=== PATIENT | female | born 1970 | race Caucasian/White ===

== ENCOUNTER 2018-09-06 01:12 | Inpatient (IN) | payer MEDICARE, OTHER ==
[~2018-09-06] VITALS: Ht 165.1 cm; Wt 103.0 kg
--- NOTE | ~2018-09-06 | CON ---
[address] [address] CONSULTATION Name: AVINASH HERNÁNDEZ Room: [address] IN M.R.#: [id number] Admission: 09/06/18 Attend Phys: Anne Joshi MD Discharge: Date of : 74 Report #: [id number] THIS REPORT FOR: //name// CC: [facility] physician/PCP Anne Joshi DATE OF SERVICE: 09/10/2018 REASON FOR CONSULT: Right lower quadrant abdominal pain and symptoms of nausea and vomiting. HISTORY OF PRESENT ILLNESS: This is a 47-year-old female with history of prosthetic cardiac valve, who is on chronic anticoagulation therapy. The patient also has history of morbid obesity and has had a gastric sleeve in March 2018. She reports that after her surgery, she developed thrush, which affected her anticoagulation therapy. She has not had any problems until few days ago when she started having severe right lower quadrant abdominal pain. She denies any change in bowel habits until when she arrived to the hospital and since hospitalization, she has had several loose stools per day here. She denies any hematochezia or melena. Since admission, she has had abdominal CT, which showed a 4 mm nonobstructing kidney stone in the left side. She does not appear to have ascites, any abnormalities with her bowels, and CT suggestive of previous cholecystectomy without any biliary ductal dilatation. PAST MEDICAL HISTORY: Significant for what is mentioned above plus hysterectomy, bilateral oophorectomy, cholecystectomy, knee surgery, hyperlipidemia, seizure disorder, bicuspid aortic valve replacement, fibromyalgia, history of gastric sleeve. ALLERGIES: SIGNIFICANT TO ZOFRAN, HYDROCODONE, CONTRAST DYE, MORPHINE, LYRICA, BENADRYL, MEPERIDINE, NUBAIN, CEPHALEXIN. MEDICATIONS: Please refer to hospital MAR. SOCIAL HISTORY: The patient is and lives at home. Denies tobacco or alcohol use. She has morbid obesity and has had a gastric sleeve surgery back in March 2018. FAMILY HISTORY: Noncontributory. PHYSICAL EXAMINATION: VITAL SIGNS: Reveals blood pressure of 143/71, respiration 18, pulse 52, temperature 97.6. L[place]GS: [place] [address] CONSULTATION Name: AVINASH HERNÁNDEZ Room: [address] IN [facility]#: [id number] Admission: 09/06/18 Attend Phys: Anne Joshi MD Discharge: Date of : 74 Report #: [id number] CARDIOVASCULAR: Regular. ABDOMEN: Soft, tender to palpation in the right lower quadrant. Bowel sounds are positive. There is no rebound tenderness. LABORATORY DATA: Reveal sodium of 145, potassium 3.5, BUN is 9, creatinine 0.8, glucose 90. Liver function tests are within normal limit except mild elevation of alkaline phosphatase. WBC 7.4 with hemoglobin of 12.2 and platelets of 213. IMAGING: As discussed above. ASSESSMENT AND PLAN: The patient with history of acute right lower quadrant abdominal pain, who has left-sided kidney stone and reports diarrhea since admission. Her pain has not improved, and CT does not reveal any reason for this pain. The patient is also on anticoagulation therapy for mitral bicuspid cause. I will consider colonoscopy as the patient has diarrhea and pain in the right lower quadrant, which will visualize terminal ileum and make further recommendation. Meanwhile, I will hold her Coumadin and also order a sed rate and CRP. By: [id number] Raymond MD /nt
--- NOTE | ~2018-09-06 | PROC ---
[address] [address] PROCEDURE REPORT Name: AVINASH HERNÁNDEZ Room: [address] IN M.R.#: [id number] Admission: 09/06/18 Attend Phys: Anne Joshi MD Discharge: 09/13/18 Date of : 74 Report #: [id number] THIS REPORT FOR: //name// For GI report, Please see the Provation report in Per[employer] 7 content. By: [id number] Records Staff FATIMAH /TRICIA
[~2018-09-06 01:12] MED LIST: ABILIFY 5 MG TAB5 M1; ABILIFY DISCMEL15 MG; ADULT LOW DOSE81 MG PO; AMBIEN 10 MG TA10 MG; AMBIEN 10 MG TA10 MG PO; AMITRIPTYLINE H25 M2 PO; ASPIRIN EC81 M1 PO; ASPIRIN325 PO; ATIVAN2 MG PO; AUGMENTIN 875875 M1 PO; AZITHROMYCIN 2250 MG PO; BACTRIM DS TAB1 EACH PO; BENTYL10 MG PO; BYSTOLIC 5 MG5 M1 PO; BYSTOLIC20 MG PO; CALCIUM 500 +1 EAC5 PO; CIPRO500 MG PO; COLACE100 MG PO; COMPAZINE10 MG PO; COUMADIN 10MG T10 M1 PO; COUMADIN7.5 MG PO; DILAUDID 2 MG TA2 MG PO; DILAUDID2 M1 PO; DOXYCYCLINE 10100 M1; DOXYCYCLINE 10100 M1 PO; EFFEXOR XR150 MG PO; EPINEPHRIN0.3 MG/0.1 IM; EPIPEN0.3 MG/0.3 IM; ERYTHROMYCIN250 MG PO; FENTANYL 1100 MCG/HR; FENTANYL 1100 MCG/HR TP; FENTANYL PA25 MCG/HR TP; FENTANYL1 EAC2 TD; FIORICET 50-321 EACH; FLAGYL500 MG PO; HYDROXYZINE HCL25 M2 PO; HYDROXYZINE HCL50 MG PO; KEPPRA 500 MG500 M1 PO; LEXAPRO20 MG PO; LIPITOR 10 MG10 M1; LOVENOX; LOVENOX SC; MAGNESIUM GLUC500 M1 PO; MEDROL DOSPAK21 TA1 PO; MEDROLDOSEPACK PO; MINIPRESS2 MG PO; MULTIVITAMINS; MULTIVITAMINS PO; NEURONTIN600 MG; NEURONTIN600 MG PO; NITROQUICK0.4 MG; NITROQUICK0.4 MG SL; NORCO 5-325 TA1 EACH PO; OMEPRAZOLE; OMEPRAZOLE20 M2 PO; OMEPRAZOLE40 MG PO; OXYCODON-ACETA1 EAC1 PO; OXYCODONE HCL30 MG; OXYCODONE-APAP1 EAC4 PO; OXYCONTIN20 M1 PO; PEPCID AC20 M1 PO; PERCOCET 10-321 EACH; PERCOCET 5-3251 EACH PO; PERCOCET 7.5-31 EACH; PERCOCET 7.5-31 EACH PO; PHENERGAN 25 MG25 M1 PO; PHENERGAN 25 MG25 MG PO; PHENERGAN50 MG RC; PREDNISONE 20 M20 MG PO; PYRIDIUM200 MG PO; REXULTI2 MG PO; SINGULAIR 10 MG10 MG PO; TRAZODONE 150150 M1; TRAZODONE 150150 M1 PO; TRILEPTAL600 MG PO; VICODIN 5-5001 EACH PO; VIVACTIL10 MG; VIVACTIL10 MG PO; WELLBUTRIN SR150 MG PO; ZANAFLEX4 M1; ZANAFLEX4 M1 PO; ZOFRAN ODT4 MG SUBLING; ZONEGRAN; ZYRTEC; ZYRTEC 10 MG TA10 MG PO; ZYRTEC10 M2 PO; [UNRECOGNIZED DRUG - OTHER]
[2018-09-06 01:29] VITALS: BP 132/77
[2018-09-06] MEDS ORDERED: OXYCONTIN15 MG PO (01:37)
[2018-09-06] MEDS ORDERED: ASPIR 8181 MG PO (01:37)
[2018-09-06 01:46] LABS: ABSOLUTE BASOPHILS 0.1 thou/uL (0.0-0.2); ABSOLUTE EOSINOPHILS 0.1 thou/uL (0.0-0.7); ABSOLUTE LYMPHOCYTES 3.4 thou/uL (0.8-5.3); ABSOLUTE MONOCYTES 0.7 thou/uL (0.0-1.2); ABSOLUTE NEUTROPHILS 4.2 thou/uL (1.6-8.1); BASOPHILS 0.9 %; EOSINOPHILS 1.3 %; HEMOGLOBIN 13.2 gm/dL (12.0-15.0); LYMPHOCYTES 40.5 %; MCH 27.8 pg (26.0-34.0); MCHC 33.8 g/dL (28.0-37.0); MCV 82.3 fL (80.0-100.0); MONOCYTES 8.1 %; MPV 7.5 fl. (7.2-11.1); NUCLEATED RBCS 0 /100WBC; PLATELET COUNT* 263 thou/uL (150-400); POLYS 49.2 %; RBC 4.74 mil/uL (4.20-5.00); RDW-CV 14.6 % (10.5-14.5); WBC 8.5 thou/uL (4.0-11.0)
[2018-09-06 01:50] LABS: URINE BILIRUBIN NEGATIVE (Negative); URINE BLOOD NEGATIVE (Negative); URINE CLARITY CLEAR; URINE COLOR YELLOW; URINE GLUCOSE-RANDOM NEGATIVE (Negative); URINE KETONES NEGATIVE (Negative); URINE LEUKOCYTES-REFLEX NEGATIVE (Negative); URINE NITRITE-REFLEX NEGATIVE (Negative); URINE PROTEIN NEGATIVE (Negative); URINE SPECIFIC GRAVITY >= 1.030 (1.005-1.030); URINE UROBILINOGEN 0.2 E.U./dl (0.2-1.0)
[2018-09-06 01:56] LABS: CALCIUM 9.2 mg/dL (8.5-10.1); CREATININE 0.8 mg/dL (0.6-1.3); POTASSIUM 4.3 mmol/L (3.5-5.1)
[2018-09-06 02:00] LABS: ALBUMIN 3.6 g/dL (3.4-5.0); TOTAL BILIRUBIN 0.3 mg/dL (<0.1-1.0); TOTAL PROTEIN 7.9 g/dL (6.4-8.2)
[2018-09-06 04:30] VITALS: BP 141/59
[2018-09-06 04:42] VITALS: BP 129/63
[2018-09-06 08:00] VITALS: BP 137/68
[2018-09-06 08:58] LABS: HEMOGLOBIN 11.9 gm/dL (12.0-15.0); MCH 28.7 pg (26.0-34.0); MCV 82.1 fL (80.0-100.0); MPV 7.5 fl. (7.2-11.1); RBC 4.14 mil/uL (4.20-5.00); RDW-CV 14.5 % (10.5-14.5); WBC 5.4 thou/uL (4.0-11.0)
[2018-09-06 15:57] VITALS: BP 161/80
[2018-09-07 04:00] VITALS: BP 137/58
[2018-09-07 05:33] LABS: ABSOLUTE BASOPHILS 0.1 thou/uL (0.0-0.2); ABSOLUTE EOSINOPHILS 0.1 thou/uL (0.0-0.7); ABSOLUTE LYMPHOCYTES 2.5 thou/uL (0.8-5.3); ABSOLUTE MONOCYTES 0.5 thou/uL (0.0-1.2); ABSOLUTE NEUTROPHILS 3.2 thou/uL (1.6-8.1); BASOPHILS 0.8 %; EOSINOPHILS 1.7 %; HEMATOCRIT 35.5 % (37.0-47.0); LYMPHOCYTES 38.5 %; MCHC 33.7 g/dL (28.0-37.0); MONOCYTES 8.5 %; MPV 8.1 fl. (7.2-11.1); NUCLEATED RBCS 0 /100WBC; PLATELET COUNT* 202 thou/uL (150-400); POLYS 50.5 %; RBC 4.28 mil/uL (4.20-5.00); RDW-CV 14.7 % (10.5-14.5); WBC 6.4 thou/uL (4.0-11.0)
[2018-09-07 05:48] LABS: CALCIUM 8.8 mg/dL (8.5-10.1); CREATININE 0.6 mg/dL (0.6-1.3); POTASSIUM 3.9 mmol/L (3.5-5.1)
[2018-09-07 07:55] VITALS: BP 154/74
[2018-09-07 16:25] VITALS: BP 146/64
[2018-09-07 19:45] VITALS: BP 133/60
[2018-09-08 08:30] VITALS: BP 130/66
[2018-09-08] MEDS ORDERED: ATIVAN1 MG PO (08:36)
[2018-09-08] MEDS ORDERED: HYDROXYZINE HCL25 M2 PO (08:37)
[2018-09-08 08:38] LABS: ABSOLUTE EOSINOPHILS 0.1 thou/uL (0.0-0.7); ABSOLUTE LYMPHOCYTES 2.5 thou/uL (0.8-5.3); ABSOLUTE MONOCYTES 0.6 thou/uL (0.0-1.2); ABSOLUTE NEUTROPHILS 4.2 thou/uL (1.6-8.1); BASOPHILS 0.3 %; EOSINOPHILS 1.7 %; HEMATOCRIT 36.5 % (37.0-47.0); HEMOGLOBIN 12.2 gm/dL (12.0-15.0); LYMPHOCYTES 33.4 %; MCH 27.6 pg (26.0-34.0); MCHC 33.4 g/dL (28.0-37.0); MCV 82.5 fL (80.0-100.0); MONOCYTES 8.1 %; NUCLEATED RBCS 0 /100WBC; PLATELET COUNT* 213 thou/uL (150-400); POLYS 56.5 %; RBC 4.42 mil/uL (4.20-5.00); RDW-CV 14.5 % (10.5-14.5); WBC 7.4 thou/uL (4.0-11.0)
[2018-09-08 08:57] LABS: CALCIUM 8.5 mg/dL (8.5-10.1); CREATININE 0.8 mg/dL (0.6-1.3); POTASSIUM 3.5 mmol/L (3.5-5.1)
[2018-09-08 09:13] LABS: INR 1.4; PROTIME 14.3 Seconds (9.20-11.50)
[2018-09-08 16:00] VITALS: BP 151/72
[2018-09-08 20:15] VITALS: BP 156/83
[2018-09-09 00:04] VITALS: BP 156/82
[2018-09-09 08:00] VITALS: BP 121/55
[2018-09-09 16:29] LABS: INR 1.2; PROTIME 12.4 Seconds (9.20-11.50)
[2018-09-09 17:18] VITALS: BP 162/79
[2018-09-09 21:15] VITALS: BP 143/71
[2018-09-10 04:13] LABS: INR 1.2; PROTIME 12.1 Seconds (9.20-11.50)
[2018-09-10 16:00] VITALS: BP 148/68
[2018-09-10 20:00] VITALS: BP 144/78
[2018-09-11 05:11] LABS: ABSOLUTE EOSINOPHILS 0.1 thou/uL (0.0-0.7); ABSOLUTE LYMPHOCYTES 2.6 thou/uL (0.8-5.3); ABSOLUTE MONOCYTES 0.4 thou/uL (0.0-1.2); ABSOLUTE NEUTROPHILS 2.8 thou/uL (1.6-8.1); BASOPHILS 0.7 %; EOSINOPHILS 2.3 %; HEMATOCRIT 32.5 % (37.0-47.0); HEMOGLOBIN 11.1 gm/dL (12.0-15.0); LYMPHOCYTES 43.3 %; MCH 28.3 pg (26.0-34.0); MCHC 34.3 g/dL (28.0-37.0); MCV 82.4 fL (80.0-100.0); MONOCYTES 6.5 %; NUCLEATED RBCS 0 /100WBC; PLATELET COUNT* 167 thou/uL (150-400); POLYS 47.2 %; RBC 3.94 mil/uL (4.20-5.00); RDW-CV 14.9 % (10.5-14.5); WBC 5.9 thou/uL (4.0-11.0)
[2018-09-11 05:20] LABS: INR 1.3; PROTIME 12.8 Seconds (9.20-11.50)
[2018-09-11 08:00] VITALS: BP 138/84
[2018-09-11 16:00] VITALS: BP 146/69
[2018-09-11 20:00] VITALS: BP 148/92
[2018-09-12 04:45] LABS: INR 1.4; PROTIME 14.4 Seconds (9.20-11.50)
[2018-09-12 07:56] VITALS: BP 148/92
[2018-09-12 08:00] VITALS: BP 128/72
[2018-09-12 08:47] VITALS: BP 137/77
[2018-09-12 16:35] VITALS: BP 147/81
[2018-09-12 20:00] VITALS: BP 145/64
[2018-09-13 04:57] LABS: INR 1.3; PROTIME 12.8 Seconds (9.20-11.50)
[2018-09-13 07:55] VITALS: BP 147/58
[2018-09-13] MEDS ORDERED: PHENERGAN 25 MG25 M1 PO (15:00)
[2018-09-13] MEDS ORDERED: NORCO 5-325 TA1 EACH PO (15:01)
[2018-09-13 15:14] VITALS: BP 147/58
--- NOTE | 2018-10-07 14:58 | PATH ---
[facility] [address] [place] [address] PATHOLOGY RPT PROCEDURE Name: MINERVA HALE Room: [address] IN M.R.#: [id number] Admission: 09/06/18 Date of : 74 Discharge: 09/13/18 Report #: [id number] Path Case #: [id number] [facility] Accession Number: [id number] . 01 Material submitted: . PART A: RANDOM COLON BIOPSY R/O MICROSCOPIC COLITIS PART B: TRANSVERSE COLON POLYP . 01 Clinical history: . None provided . 02 Diagnosis: A. Random colon, biopsy: - Fragments of unremarkable colonic mucosa. - There is no evidence of microscopic colitis or inflammatory bowel disease. . B. Transverse colon polyp, biopsy: - Tubular adenoma, negative for high-grade dysplasia. . (MAP:aviation technical systems specialist; 09/13/2018) MBR/09/13/2018 . 02 Electronically signed: . Judson Wilks MD, Pathologist NPI- [id number] . 01 Gross description: . A. Received in formalin labeled "Minerva Hale, random colon biopsy, rule out microscopic colitis," are multiple segments of leung soft tissue measuring 1.9 x 0.6 x 0.2 cm in aggregate dimensions. The specimen is filtered and entirely submitted in cassette A1. . B. Received in formalin labeled "Minerva Hale, transverse colon polyp," is a single segment of leung soft tissue measuring 0.4 cm in maximum dimension. The specimen is entirely submitted in cassette B1. (TSD; 09/12/2018) TOB/TOB . 02 Pathologist provided ICD-10: D12.3, R10.9 . 02 CPT . 221095, 866332 Specimen Comment: Report sent to / DR DEAL Specimen Comment: A duplicate report has been generated due to demographic updates. Performed at: [address] [place] [address] PATHOLOGY RPT PROCEDURE Name: MINERVA HALE Room: [address] IN [facility]#: [id number] Admission: 09/06/18 Date of : 74 Discharge: 09/13/18 Report #: [id number] Path Case #: [id number] [facility] [place] [address] [place] [id number] MD Fadi Oneal MD Phone: [phone] Performed at: [address] [address] [address], [place], [place] [id number] MD Alexis Henry MD Phone: [phone]
== END 2018-09-13 15:40 | disposition home or self-care (01) | DRG 392 ==
LOC: M.ERS 01:12 → M.3W 03:46 → M.TBA-ER 03:46 → M.3W 04:35
PROVIDERS: Emergency Medicine; Internal Medicine; Surgery; ADMIT Internal Medicine
PROC: 0DBE8ZX Excision of Large Intestine, Via Natural or Artificial Opening Endoscopic, Diagnostic (ICD-10-PCS; principal; 2018-09-12)
PROC: 0DBL8ZZ Excision of Transverse Colon, Via Natural or Artificial Opening Endoscopic (ICD-10-PCS; principal; 2018-09-12)
DX: K57.92 Diverticulitis of intestine, part unspecified, without perforation or abscess without bleeding (principal); E78.00 Pure hypercholesterolemia, unspecified; M79.7 Fibromyalgia; D12.3 Benign neoplasm of transverse colon; E66.01 Morbid (severe) obesity due to excess calories; K52.839 Microscopic colitis, unspecified; G40.909 Epilepsy, unspecified, not intractable, without status epilepticus; Z90.710 Acquired absence of both cervix and uterus; Z90.722 Acquired absence of ovaries, bilateral; Z95.2 Presence of prosthetic heart valve; Z68.37 Body mass index [BMI] 37.0-37.9, adult; Z98.84 Bariatric surgery status; Z90.49 Acquired absence of other specified parts of digestive tract; Z79.01 Long term (current) use of anticoagulants; Z79.82 Long term (current) use of aspirin; Z79.899 Other long term (current) drug therapy; Z91.041 Radiographic dye allergy status; Z88.5 Allergy status to narcotic agent; Z91.013 Allergy to seafood; Z88.8 Allergy status to other drugs, medicaments and biological substances; Z91.018 Allergy to other foods; Z23 Encounter for immunization

== ENCOUNTER 2018-09-30 01:23 | Emergency (ER) | payer MEDICARE, OTHER ==
[~2018-09-30] VITALS: Ht 165.1 cm; Wt 97.1 kg
[~2018-09-30 01:23] MED LIST changes: +ASPIR 8181 MG PO; +ATIVAN1 MG PO; +OXYCONTIN15 MG PO
[2018-09-30 01:48] LABS: URINE BILIRUBIN NEGATIVE (Negative); URINE BLOOD TRACE (Negative); URINE CLARITY CLEAR; URINE COLOR YELLOW; URINE GLUCOSE-RANDOM NEGATIVE (Negative); URINE KETONES NEGATIVE (Negative); URINE LEUKOCYTES-REFLEX NEGATIVE (Negative); URINE NITRITE-REFLEX NEGATIVE (Negative); URINE PROTEIN NEGATIVE (Negative); URINE SPECIFIC GRAVITY >= 1.030 (1.005-1.030); URINE UROBILINOGEN 0.2 E.U./dl (0.2-1.0)
[2018-09-30 01:56] LABS: AMP/METHAMP Negative (Negative); BARBITURATES Negative (Negative); BENZODIAZEPINES Negative (Negative); COCAINE Negative (Negative); METHADONE Negative (Negative); OPIATES POSITIVE (Negative); PCP Negative (Negative); THC Negative (Negative)
[2018-09-30 02:15] LABS: ABSOLUTE BASOPHILS 0.1 thou/uL (0.0-0.2); ABSOLUTE EOSINOPHILS 0.1 thou/uL (0.0-0.7); ABSOLUTE LYMPHOCYTES 3.1 thou/uL (0.8-5.3); ABSOLUTE MONOCYTES 0.7 thou/uL (0.0-1.2); ABSOLUTE NEUTROPHILS 3.9 thou/uL (1.6-8.1); BASOPHILS 0.9 %; EOSINOPHILS 1.8 %; HEMATOCRIT 37.7 % (37.0-47.0); HEMOGLOBIN 12.6 gm/dL (12.0-15.0); LYMPHOCYTES 39.3 %; MCH 27.3 pg (26.0-34.0); MCHC 33.5 g/dL (28.0-37.0); MCV 81.7 fL (80.0-100.0); MONOCYTES 8.4 %; MPV 7.5 fl. (7.2-11.1); NUCLEATED RBCS 0 /100WBC; PLATELET COUNT* 290 thou/uL (150-400); POLYS 49.6 %; RBC 4.62 mil/uL (4.20-5.00); WBC 7.9 thou/uL (4.0-11.0)
[2018-09-30 02:27] LABS: CALCIUM 9.2 mg/dL (8.5-10.1); CREATININE 0.8 mg/dL (0.6-1.3); POTASSIUM 3.8 mmol/L (3.5-5.1)
[2018-09-30 02:32] LABS: ALBUMIN 3.7 g/dL (3.4-5.0); TOTAL BILIRUBIN 0.3 mg/dL (<0.1-1.0); TOTAL PROTEIN 7.8 g/dL (6.4-8.2)
[2018-09-30] MEDS ORDERED: COMPAZINE10 MG PO (03:46)
[2018-09-30 04:19] VITALS: BP 129/68
== END 2018-09-30 04:17 | disposition home or self-care (01) ==
LOC: M.ERS 01:23
PROVIDERS: Emergency Medicine
DX: R10.11 Right upper quadrant pain (principal); R10.31 Right lower quadrant pain; R11.2 Nausea with vomiting, unspecified; M79.7 Fibromyalgia; E78.00 Pure hypercholesterolemia, unspecified; Z90.49 Acquired absence of other specified parts of digestive tract; Z90.710 Acquired absence of both cervix and uterus; Z90.722 Acquired absence of ovaries, bilateral

== ENCOUNTER → 2021-01-23 | Outpatient (CLI) | payer MEDICARE, OTHER | LOC: M.WC 09:00 | PROVIDERS: ATTEND Surgery | DX: T81.89XA Other complications of procedures, not elsewhere classified, initial encounter (principal); E78.5 Hyperlipidemia, unspecified; G89.4 Chronic pain syndrome; G43.909 Migraine, unspecified, not intractable, without status migrainosus; K21.9 Gastro-esophageal reflux disease without esophagitis; F41.9 Anxiety disorder, unspecified; F32.9 Major depressive disorder, single episode, unspecified; F43.10 Post-traumatic stress disorder, unspecified; Z86.73 Personal history of transient ischemic attack (TIA), and cerebral infarction without residual deficits; Z90.710 Acquired absence of both cervix and uterus; Z95.4 Presence of other heart-valve replacement; Z90.49 Acquired absence of other specified parts of digestive tract; Y92.238 Other place in hospital as the place of occurrence of the external cause; Y83.8 Other surgical procedures as the cause of abnormal reaction of the patient, or of later complication, without mention of misadventure at the time of the procedure ==

== ENCOUNTER → 2021-01-31 | Outpatient (CLI) | payer MEDICARE, OTHER | LOC: M.WC 08:40 | PROVIDERS: ATTEND Family Medicine | DX: T81.89XD Other complications of procedures, not elsewhere classified, subsequent encounter (principal); G89.4 Chronic pain syndrome; K21.9 Gastro-esophageal reflux disease without esophagitis; E78.5 Hyperlipidemia, unspecified; G43.909 Migraine, unspecified, not intractable, without status migrainosus; E66.9 Obesity, unspecified; F41.9 Anxiety disorder, unspecified; F32.9 Major depressive disorder, single episode, unspecified; Z86.73 Personal history of transient ischemic attack (TIA), and cerebral infarction without residual deficits; Z90.721 Acquired absence of ovaries, unilateral; Z79.899 Other long term (current) drug therapy; Z68.28 Body mass index [BMI] 28.0-28.9, adult; Y83.8 Other surgical procedures as the cause of abnormal reaction of the patient, or of later complication, without mention of misadventure at the time of the procedure ==